=== PATIENT | male | born 2005 | race Caucasian/White ===

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

== ENCOUNTER 2025-05-06 09:54 | Emergency (ER) | payer OTHER, SELFPAY ==
--- OUTSIDE RECORDS SUMMARY | 2025-05-06 09:57 | XMS REPORT | Continuity of Care Document ---
Author Name Unknown Address [address] [place] [address] [facility][1] Address [address] [place] [address] Care Team Providers Care Bsa Officer Name Role Phone Mina YOUNG Attending Clinician Unavailable TYREL MOODY D.O. Attending Clinicia n Unavailable HORACE DEVI M.D. Attending Clinician U navailable Payers Payer Name Policy Type Policy Number Effective Date Expirati on Date Source [facility] STAR [id number] 2017 00:00:00 Problems Condition Name Condition Details Condition Category Status Onset Date Resolution Date Last Treatment Date Treating Clinician Comments Source Headache Headache Problem Active [facility] Syncope and collapse Syncope and collapse Problem Active [facility] Concussion without loss of consciousn ess, initial encounter Concussion without loss of consciousn ess, initial encounter Problem Active [facility] Allergies, Adverse Reactions, Alerts Allergy Name Allergy Type Status Severity Reaction(s) Onset Date Inactive Date Treating Clinician Comments Source NO KNOWN ALLERGIE S Drug Class Active [facility] Family History Family Member Diagnosis Comments Start Date Stop Date Sour e Unknown Family Member Family history of diabetes mellitus Family History [facility] Unknown Family Member Family history of Heart trouble Family History [facility] Unknown Family Member Family history of arthritis Family History [facility] Unknown Family Member Family history of malignant neoplasm Family History [facility] Unknown Family Member Family history of mental disorder Family History [facility] Medications Ordered Medication Name Filled Medication Name Start Date Stop Date Current Medication? Ordering Clinician Indication Dosage Frequency Signature (SIG) Comments Components Source Ibuprofen TABS Ibuprofen TABS Yes [facility] Encounters Start Date/Time End Date/Time Encounter Type Admission Type Attending Clinicians Care Facility Care Department Encounter ID Source 2021-01-10 15:33:00 2021-01-10 15:33:00 Emergency X Mina YOUNG ERT [id number] [facility] 2019-06-13 10:20:00 2019-06-13 10:20:00 Appointherminia t; TYREL LOONEY D.O. WANG-GIUFFR E, ELIZABETH, D.O. [facility] [id number] [place] [facility] 2019-05-28 09:45:00 2019-05-28 09:45:00 Appointherminia t; HORACE DEVI M.D. LI-YUNG HING, ANDREW, M.D. [facility] Orthopedics [facility] [id number] [place] [facility]
--- NOTE | 2025-05-06 10:08 | ER ---
Nurse's Notes [facility] Name: Zacarias Givens Age: 19 yrs Sex: Male : 2005 Arrival Date: 05/06/2025 Time: 09:54 Bed IW1 Private MD: Diagnosis: Periapical abscess without sinus Presentation: 05/06 10:04 Chief complaint: Patient states: facial swelling and toothache that started about 3-4 me1 days ago. Has been taking amoxicillin but it isnt working. Coronavirus screen: At this time, the client does not indicate any symptoms associated with coronavirus-19. Ebola Screen: No symptoms or risks identified at this time. Initial Sepsis Screen: Does the patient meet any 2 criteria? HR > 90 bpm. No. Patient's initial sepsis screen is negative. Does the patient have a suspected source of infection? No. Patient's initial sepsis screen is negative. Risk Assessment: Do you want to hurt yourself or someone else? Patient reports no desire to harm self or others. Onset of symptoms was May 02, 2025. 10:04 Method Of Arrival: Ambulatory mn1 10:04 Acuity: GABRIELLE 4 me1 Triage Assessment: 10:06 General: Appears uncomfortable, well groomed, well developed, well nourished, Behavior me1 is calm, cooperative, appropriate for age, Reports left sided facial swelling with toothache x 4 days. Pain: Complains of pain in upper left first molar (#14) Pain does not radiate. Pain currently is 4 out of 10 on a pain scale. Quality of pain is described as aching, Pain began 4 days ago Is continuous. EENT: Reports pain in upper left first molar (#14). Neuro: Level of Consciousness is awake, alert, obeys commands, Oriented to person, place, time, situation, Appropriate for age. Cardiovascular: Patient's skin is warm and dry. Respiratory: Airway is patent Trachea midline Respiratory effort is even, unlabored, Respiratory pattern is regular, symmetrical. GI: No signs and/or symptoms were reported involving the gastrointestinal system. : No signs and/or symptoms were reported regarding the genitourinary system. Derm: Skin is intact, is healthy with good turgor, Skin is normal. Musculoskeletal: Swelling present in left cheek and left jaw. Historical: - Allergies: 10:06 No Known Allergies; me1 - PMHx: 10:06 Head injury 2019; Hypertensive disorder; me1 - PSHx: 10:06 None; me1 - Immunization history:: Adult Immunizations up to date. - Infectious Disease History:: Denies. - Social history:: Smoking status: Reported history of juuling and/or vaping. Screenin:09 [facility] ED Fall Risk Assessment (Adult) History of falling in the last 3 months, me1 including since admission No falls in past 3 months (0 pts) Confusion or Disorientation No (0 pts) Intoxicated or Sedated No (0 pts) Impaired Gait No (0 pts) Mobility Assist Device Used No (0 pt) Altered Elimination No (0 pt) Score/Fall Risk Level 0 - 2 = Low Risk Maintained a safe environment, Provided non-skid footwear, Hourly rounding (assess needs \T\ fall precautionary measures) done. Abuse screen: Denies threats or abuse. Nutritional screening: No deficits noted. Tuberculosis screening: No symptoms or risk factors identified. Assessment: 10:09 General: See triage assessment. me1 Vital Signs: 10:04 BP 160 / 91; Pulse 108; Resp 20; Temp 98.4; Pulse Ox 100% ; Weight 86.18 kg; Height 5 me1 ft. 7 in. ; Pain 4/10; 10:04 Body Mass Index 29.76 (86.18 kg, 170.18 cm) me1 10:04 Pain Scale: Adult me1 ED Course: 09:57 Patient arrived in ED. al6 09:57 [facility] 09[facility]57 Carlene Prieto MD is Attending Physician. kb 10:06 Triage completed. me1 10:06 Arm band placed on Patient placed in an exam room. me1 10:09 Patient has correct armband on for positive identification. Provided Education on: POC. me1 Verbalized understanding.. 10:09 No provider procedures requiring assistance completed. Patient did not have IV access me1 during this emergency room visit. Administered Medications: No medications were administered Medication: 10:09 VIS not applicable for this client. me1 Outcome: 10:07 Discharge ordered by . kb 10:13 Discharged to home ambulatory, with significant other, me1 10:13 Condition: stable 10:13 Discharge instructions given to patient, significant other, Instructed on discharge instructions, follow up and referral plans. medication usage, Demonstrated understanding of instructions, follow-up care, medications, Prescriptions given X 1, 10:14 Patient left the ED. me1 Signatures: Cassia Van FNP-C FNP-Vee Perales, RN RN me1 Yin Ramirez6
--- NOTE | 2025-05-06 10:08 | EDPHYS ---
Physician Documentation [facility] Name: Zacarias Givens Age: 19 yrs Sex: Male : 2005 Arrival Date: 05/06/2025 Time: 09:54 Bed IW1 Private MD: ED Physician Carlene Prieto HPI: 05/06 10:05 This 19 yrs old Male presents to ER via Unassigned with complaints of Facial kb Swelling, Toothache. 10:05 Pt is a 19 year old male who presents for toothache that started 3-4 days ago with gum kb swelling that started a day later. Denies fever. States he had some amoxicillin at home so he started taking that but it isn't getting better. . Historical: - Allergies: 10:06 No Known Allergies; me1 - PMHx: 10:06 Head injury 2019; Hypertensive disorder; me1 - PSHx: 10:06 None; me1 - Immunization history:: Adult Immunizations up to date. - Infectious Disease History:: Denies. - Social history:: Smoking status: Reported history of juuling and/or vaping. ROS: 10:04 Constitutional: As per HPI kb Exam: 10:04 Constitutional: This is a well developed, well nourished patient who is awake, alert, kb and in no acute distress. Head/Face: Normocephalic, atraumatic. Cardiovascular: Regular rate Respiratory: Respirations even and unlabored. No increased work of breathing. Talking in full sentences Skin: Warm, dry with normal turgor. Normal color. MS/ Extremity: Pulses equal, no cyanosis. Neurovascular intact. Full, normal range of motion. Neuro: Awake and alert, GCS 15, oriented to person, place, time, and situation. 10:04 ENT: Dental exam: abscess, that is moderate, specifically in the upper left first molar (#14), pain, that is moderate, specifically in the upper left first molar (#14), Vital Signs: 10:04 BP 160 / 91; Pulse 108; Resp 20; Temp 98.4; Pulse Ox 100% ; Weight 86.18 kg; Height 5 me1 ft. 7 in. ; Pain 4/10; 10:04 Body Mass Index 29.76 (86.18 kg, 170.18 cm) me1 10:04 Pain Scale: Adult me1 MDM: 09:57 Medical Screening Exam initiated kb 10:06 Data reviewed: vital signs, nurses notes. 10:07 Differential diagnosis: dental caries, gingivitis, dental abscess, pericoronitis, kb aphthous ulcers. Counseling: I had a detailed discussion with the patient and/or guardian regarding the historical points, exam findings, and any diagnostic results supporting the discharge/admit diagnosis, the need for outpatient follow up, a dentist, to return to the emergency department if symptoms worsen or persist or if there are any questions or concerns that arise at home. 10:07 Test considered but Not performed: Labs: cbc, cmp considered but pt is nontoxic in kb appearance. . CT: ct considered but results wouldn't change plan of care. Administered Medications: No medications were administered Disposition Summary: 05/06/25 10:07 Discharge Ordered Notes: Location: Home kb Condition: Stable kb Diagnosis - Periapical abscess without sinus kb Followup: kb - With: Emergency Department - When: As needed - Reason: Worsening of condition Followup: kb - With: Private Physician - When: 2 - 3 days - Reason: Recheck today's complaints, Continuance of care, Re-evaluation by your physician Discharge Instructions: - Discharge Summary Sheet kb - Dental Pain, [id number] kb - Dental Abscess, [id number] kb Forms: - Medication Reconciliation Form kb - Antibiotic Education kb - Prescription Opioid Use kb - Patient Portal Instructions kb - Leadership Thank You Letter kb Prescriptions: - Clindamycin HCl 300 mg Oral Capsule - take 1 capsule ORAL route every 6 hours for 10 days; 40 capsule; Refills: 0, kb Product Selection Permitted Signatures: Cassia Van FNP-C FNP-Vee Perales, RN RN me1
[2025-05-06 10:21] VITALS: BP 160/91; TEMP 98.4; O2SAT 100
== END 2025-05-06 10:14 | disposition home or self-care (01) ==
LOC: ER 09:54
DX: K04.7 Periapical abscess without sinus (principal); I10 Essential (primary) hypertension
CPT/HCPCS: 99283